=== PATIENT | male | born 1960 | race Caucasian/White ===

== ENCOUNTER 2021-02-05 15:43 | Outpatient (CLI) | payer OTHER, SELFPAY | END 2021-02-05 15:44 | disposition home or self-care (01) | LOC: ANHCOVIDVC 15:44 | PROVIDERS: PCP Family Medicine | DX: Z23 Encounter for immunization (principal) | CPT/HCPCS: 0001A; 91300 ==

== ENCOUNTER 2021-02-26 15:44 | Outpatient (CLI) | payer OTHER, SELFPAY | END 2021-02-26 15:45 | disposition home or self-care (01) | LOC: ANHCOVIDVC 15:44 | PROVIDERS: PCP Family Medicine | DX: Z23 Encounter for immunization (principal) | CPT/HCPCS: 0002A; 91300 ==

== ENCOUNTER → 2021-05-10 01:09 | Outpatient (CLI) | payer OTHER, SELFPAY ==
[2021-05-10 17:56] LABS: SARS-CoV-2 RNA PCR Negative
== END ==
PROVIDERS: PCP Family Medicine; Visit Provider Internal Medicine Gastroenterology
DX: Z01.812 Encounter for preprocedural laboratory examination (principal); Z20.822 Contact with and (suspected) exposure to COVID-19
CPT/HCPCS: C9803; U0003; U0005

== ENCOUNTER 2021-05-14 01:14 | Day surgery (SDC) | payer OTHER, SELFPAY ==
[2021-05-05 10:33] VITALS: BMI 37.8
--- NOTE | 2021-05-13 13:35 | P.PNAN_ITS ---
Anes - Initial Pre Proc Eval Procedure: Operation Date: 05/14/21 08:00 Proposed Procedures p Screening Colonoscopy - Abel Gentile MD Date/Time: 05/13/21 13:35 Surgeon: Abel Gentile MD Pre Op Diagnosis: neoplsam screening, hx of colon polyps Patient Data Age: 60 Gender: M Height: 1.93 m Weight: 141 kg Allergies Allergy/AdvReac Type Severity Reaction Status Date / Time No Known Allergies Allergy Verified 05/14/21 06:49 Home Medications Medication Instructions Recorded Confirmed Type metformin 500 mg tablet,extended 500 mg PO QACDINNER #90 tablet 04/18/20 05/05/21 Rx release 24 hr ascorbic acid (vitamin C) 1,000 mg 1 g PO DAILY 01/31/21 05/05/21 History tablet aspirin 81 mg tablet,delayed 81 mg PO DAILY 01/31/21 05/05/21 History release atorvastatin 10 mg tablet 10 mg PO QHS #90 tablet 01/31/21 05/05/21 Rx hydrochlorothiazide 12.5 mg tablet 12.5 mg PO DAILY #90 tablet 01/31/21 05/05/21 Rx lisinopril 40 mg tablet 40 mg PO DAILY #90 tablet 01/31/21 05/05/21 Rx tamsulosin 0.4 mg capsule 0.4 mg PO DAILY #30 cap 03/24/21 05/14/21 Rx Patient hx anesthesia problems: none Family hx anesthesia problems: none PMFSH Past Medical History Medical History (Updated 05/13/21 @ 13:35 by Ezequiel Ambrocio DO) Colon polyps Essential (primary) hypertension Mixed hyperlipidemia Morbid obesity with BMI of 40.0-44.9, adult Obstructive sleep apnea (adult) (pediatric) Family History Family History Father Family history of lung cancer Other Family history of cardiovascular disease Family history of type 2 diabetes mellitus Social History Social History Alcohol intake: current Substance use: never Substance use type: does not use Living arrangements: with family Spiritual care concerns: No Anes - Eval Final PreProcedure Day of Procedure 05/13/21 13:35 Patient weight: obese Heart: regular rate and rhythm Lungs: clear to auscultation and normal air movement Airway: Mallampati scale class III Neurological: alert and oriented Last oral intake: >/= 8 hours ASA classification: III Emergent: no Anesthetic plan: proceed Anesthesia type and monitoring: general GIVS and standard monitoring Informed Consent: The patient's anesthetic plan and its attendant risks and benefits were discussed with the patient/family/POA. Questions were solicited and answers provided to the satisfaction of the patient/family/POA.
[2021-05-14 06:55] VITALS: BP 133/84; PULSE 100; RESP 20; TEMP 36.4; O2SAT 100
[2021-05-14 07:07] LABS: Glucose Point of Care 119 mg/dl (65-105)
[2021-05-14] MEDS: LACTATED RINGERS 1,000 ML 150 ML IV CONT (07:10)
--- NOTE | 2021-05-14 08:05 | PM.HPGS ---
History of Present Illness History of Present Illness Consent: Risks, benefits, and alternatives have been discussed and questions answered. Patient agrees to proceed with procedure. Chief complaint: neoplsam screening, hx of colon polyps Narrative: Claudio Perez is a 60 year old male for colon cancer screening. He had a polyp removed 3 years ago Review of Systems Review of Systems: All systems reviewed & are unremarkable except as noted in HPI and below PMFSH Past Medical History Medical History Colon polyps Essential (primary) hypertension Mixed hyperlipidemia Morbid obesity with BMI of 40.0-44.9, adult Obstructive sleep apnea (adult) (pediatric) Family History Family History Father Family history of lung cancer Other Family history of cardiovascular disease Family history of type 2 diabetes mellitus Social History Social History Alcohol intake: current Substance use: never Substance use type: does not use Living arrangements: with family Spiritual care concerns: No Meds Home Medications and Allergies Home Medications Medication Instructions Recorded Confirmed Type metformin 500 mg tablet,extended 500 mg PO QACDINNER #90 tablet 04/18/20 05/05/21 Rx release 24 hr ascorbic acid (vitamin C) 1,000 mg 1 g PO DAILY 01/31/21 05/05/21 History tablet aspirin 81 mg tablet,delayed 81 mg PO DAILY 01/31/21 05/05/21 History release atorvastatin 10 mg tablet 10 mg PO QHS #90 tablet 01/31/21 05/05/21 Rx hydrochlorothiazide 12.5 mg tablet 12.5 mg PO DAILY #90 tablet 01/31/21 05/05/21 Rx lisinopril 40 mg tablet 40 mg PO DAILY #90 tablet 01/31/21 05/05/21 Rx tamsulosin 0.4 mg capsule 0.4 mg PO DAILY #30 cap 03/24/21 05/14/21 Rx Allergies Allergy/AdvReac Type Severity Reaction Status Date / Time No Known Allergies Allergy Verified 05/14/21 06:49 Vital Signs Vital Signs - 24 hr 05/14/21 06:55 Temperature 36.4 C Pulse Rate 100 Respiratory Rate 20 Blood Pressure 133/84 Pulse Oximetry 100 Exam Resp: Auscultation: clear to auscultation bilaterally Cardio: Rate: regular rate Rhythm: regular rhythm GI: GI Palp: Yes Soft to palpation and No Tenderness to palpation present (GI) Assessment and Plan Assessment and plan (1) Colon cancer screening: Code(s): Z12.11 - Encounter for screening for malignant neoplasm of colon Status: Acute Assessment and Plan: Colonoscopy with possible biopsy or polypectomy or cautery or injection of substances.
[2021-05-14 08:27] VITALS: BP 103/63; PULSE 89; RESP 22; O2SAT 99
[2021-05-14 08:37] VITALS: BP 101/61; PULSE 82; RESP 23; O2SAT 97
[2021-05-14 08:47] VITALS: BP 118/76; PULSE 80; RESP 20; O2SAT 98
== END 2021-05-14 08:54 | disposition home or self-care (01) ==
PROVIDERS: PCP Family Medicine; Visit Provider Internal Medicine Gastroenterology
PROC: 0DJD8ZZ Inspection of Lower Intestinal Tract, Via Natural or Artificial Opening Endoscopic (ICD-10-PCS; CPT 45378; principal; 2021-05-14 08:00)
DX: Z12.11 Encounter for screening for malignant neoplasm of colon (principal); D12.2 Benign neoplasm of ascending colon; D12.5 Benign neoplasm of sigmoid colon; K57.30 Diverticulosis of large intestine without perforation or abscess without bleeding; I10 Essential (primary) hypertension; E78.2 Mixed hyperlipidemia; G47.33 Obstructive sleep apnea (adult) (pediatric); Z79.84 Long term (current) use of oral hypoglycemic drugs; Z79.82 Long term (current) use of aspirin; E66.9 Obesity, unspecified; Z68.39 Body mass index [BMI] 39.0-39.9, adult
CPT/HCPCS: 45385; 45380; 82948; 88305; C9803; J2704; J7120; U0003; U0005

== ENCOUNTER 2024-05-15 19:16 | Emergency (ER) | payer OTHER, SELFPAY ==
[2024-05-15 19:24] VITALS: BP 133/92; PULSE 137; RESP 20; TEMP 36.5; O2SAT 100
--- NOTE | 2024-05-15 19:36 | ED.SKABFB ---
HPI - Skin/Abscess/Foreign Bdy General Chief complaint: Skin/Abscess/Foreign Body Stated complaint: Rash Left Leg Time Seen by Provider: 05/15/24 19:24 Source: patient and RN notes reviewed Mode of arrival: ambulatory Limitations: no limitations History of Present Illness HPI narrative: Patient presents today complaining of sudden onset rash to the bilateral calves the just started 1 hour prior to arrival as he was mowing his lawn. Denies any current itching or pain. He has tried no [id number] treatment prior to arrival. Related Data Home Medications Medication Instructions Recorded Confirmed ascorbic acid (vitamin C) 1,000 mg 1 g PO DAILY 01/31/21 05/15/24 tablet aspirin 81 mg tablet,delayed 81 mg PO DAILY 01/31/21 05/15/24 release (Rukhsana Low Dose Aspirin) Allergies Allergy/AdvReac Type Severity Reaction Status Date / Time No Known Allergies Allergy Verified 02/24/24 15:28 Review of Systems Review of Systems: CONSTITUTIONAL: Denies body aches, fever, chills, or sweats. EYES: Denies visual changes, redness, or discharge. ENT: Denies rhinorrhea, congestion, sore throat, or otalgia. CARDIOVASCULAR: Denies chest pain, palpitations, or edema. RESPIRATORY: Denies cough or dyspnea. GASTROINTESTINAL: Denies abdominal pain, nausea, vomiting, or diarrhea. GENITOURINARY: Denies dysuria or hematuria. SKIN: + rash to bilateral posterior calves MUSCULOSKELETAL: Denies back pain, joint pain, or myalgia. NEUROLOGIC: Denies headache, numbness, tingling, or weakness. PSYCH: Denies depression or anxiety. [facility] Past Medical History Medical History Colon polyps Essential (primary) hypertension Mixed hyperlipidemia Morbid obesity with BMI of 40.0-44.9, adult Obstructive sleep apnea (adult) (pediatric) Tubular adenoma of colon Family History Family History Father Family history of lung cancer Other Family history of cardiovascular disease Family history of type 2 diabetes mellitus Social History Social History Smoking status: Never smoker Alcohol intake: current Substance use: never Substance use type: does not use Lack of Transportation: No Lack of Food: Never True Current Housing: I Have Housing Difficulty Paying Gas/Electric Bills: No Difficulty Paying for Meds: No Currently Unemployed: No Education: Master's Degree or Higher Difficulty w/ Childcare or Family Care: No Living arrangements: with family Spiritual care concerns: No Comments At time of signature, I have reviewed and agree with nursing past medical, surgical, social and family history unless otherwise noted. Please see nursing chart for further information. There is no relevant family history pertinent to the presenting complaint Exam Narrative: GENERAL: Well-appearing, well-nourished, and in no acute distress. HEAD: Normocephalic, atraumatic. EYES: EOMI. No redness or drainage. Conjunctivae normal. ENT: Mucous membranes pink and moist. NECK: Normal AROM. CHEST: No respiratory distress. EXTREMITIES: Normal range of motion. No edema. SKIN: Warm, dry. Capillary refill normal. Normal skin turgor.10 x 13cm area of irregularly-shaped erythematous macule to left posterior calf. 5 x 4 cm irregularly-shaped erythematous macule to the right posterior calf. No edema, ecchymosis. NEURO: No focal deficits. Alert and oriented x3. Gait steady. PSYCH: Normal affect. No signs of depression or anxiety. Course Course Level of Care: Express Care Visit Vital Signs Vital signs: Vital Signs Temperature 97.7 F 05/15/24 19:24 Pulse Rate 137 H 05/15/24 19:24 Respiratory Rate 20 05/15/24 19:24 Blood Pressure 133/92 H 05/15/24 19:24 Pulse Oximetry 100 05/15/24 19:24 Oxygen Delivery Room Air 05/15/24 19:24
[2024-05-15 19:45] VITALS: PULSE 136
== END 2024-05-15 19:49 | disposition home or self-care (01) ==
PROVIDERS: Emergency Provider Nurse Practitioner; PCP Family Medicine
DX: L25.9 Unspecified contact dermatitis, unspecified cause (principal); I10 Essential (primary) hypertension; E78.2 Mixed hyperlipidemia; E66.01 Morbid (severe) obesity due to excess calories; Z68.37 Body mass index [BMI] 37.0-37.9, adult; Z79.82 Long term (current) use of aspirin
CPT/HCPCS: 99213; G0463

== ENCOUNTER 2024-10-31 01:53 | Day surgery (SDC) | payer OTHER, SELFPAY ==
[2024-10-11 10:28] VITALS: BMI 37.7
[2024-10-31 09:40] VITALS: BP 150/92; PULSE 102; RESP 18; TEMP 36.4; O2SAT 100
--- NOTE | 2024-10-31 09:55 | P.PNAN_ITS ---
Anes - Initial Pre Proc Eval Procedure: Operation Date: 10/31/24 11:00 Proposed Procedures p Colonoscopy - Kemar Colbert MD Date/Time: 10/31/24 09:55 Surgeon: Kemar Colbert MD Pre Op Diagnosis: Personal hx. colon polyps Patient Data Age: 64 Gender: M Height: 1.91 m Weight: 140.8 kg Last Vital Signs Temp 36.4 C 10/31/24 09:40 Pulse 102 H 10/31/24 09:40 Resp 18 10/31/24 09:40 BP 150/92 H 10/31/24 09:40 Pulse Ox 100 10/31/24 09:40 O2 Del Method Room Air 10/31/24 09:40 Allergies Allergy/AdvReac Type Severity Reaction Status Date / Time No Known Allergies Allergy Verified 10/31/24 09:38 Home Medications Medication Instructions Recorded Confirmed Type ascorbic acid (vitamin C) 1,000 mg 2 g PO DAILY 01/31/21 10/31/24 History tablet aspirin 81 mg tablet,delayed 81 mg PO DAILY 01/31/21 10/31/24 History release (Rukhsana Low Dose Aspirin) atorvastatin 10 mg tablet 10 mg PO QHS #90 tabs 07/14/24 10/31/24 Rx hydrochlorothiazide 12.5 mg tablet 12.5 mg PO DAILY #90 tabs 09/13/24 10/31/24 Rx lisinopril 40 mg tablet 40 mg PO DAILY #90 tabs 09/13/24 10/31/24 Rx metformin 500 mg tablet,extended 1,000 mg PO DAILY 10/11/24 10/31/24 History release 24 hr semaglutide 1 mg/dose (4 mg/3 mL) 1 mg subcut WEEKLY 10/11/24 10/31/24 History subcutaneous pen injector (Ozempic) Patient hx anesthesia problems: none Family hx anesthesia problems: none Results Review: All pre-operative results and documents have been reviewed as part of the pre- operative evaluation. [facility] Past Medical History Medical History (Updated 06/30/24 @ 15:23 by Duc Vega MD) Colon polyps Essential (primary) hypertension Mixed hyperlipidemia Morbid obesity with BMI of 40.0-44.9, adult Obstructive sleep apnea (adult) (pediatric) Tubular adenoma of colon Family History Family History Father Family history of lung cancer Other Family history of cardiovascular disease Family history of type 2 diabetes mellitus Social History Social History Smoking status: Never smoker Alcohol intake: never Substance use: never Substance use type: does not use Lack of Transportation: No Lack of Food: Never True Current Housing: I Have Housing Difficulty Paying Gas/Electric Bills: No Difficulty Paying for Meds: No Currently Unemployed: No Education: Master's Degree or Higher Difficulty w/ Childcare or Family Care: No Living arrangements: with family Spiritual care concerns: No Anes - Eval Final PreProcedure Day of Procedure 10/31/24 09:55 Patient weight: obese Heart: regular rate and rhythm Lungs: clear to auscultation Airway: Mallampati scale class II Neurological: alert and oriented Last oral intake: >/= 8 hours ASA classification: III Emergent: no Anesthetic plan: proceed Anesthesia type and monitoring: general GIVS and standard monitoring Results Review: All pre-operative results and documents have been reviewed as part of the pre- operative evaluation. Informed Consent: The patient's anesthetic plan and its attendant risks and benefits were discussed with the patient/family/POA. Questions were solicited and answers provided to the satisfaction of the patient/family/POA.
[2024-10-31] MEDS: LACTATED RINGERS 1,000 ML 150 ML IV CONT (09:58)
[2024-10-31 10:04] LABS: Glucose Point of Care 100 mg/dl (65-105)
--- NOTE | 2024-10-31 10:26 | PM.HPGS ---
History of Present Illness History of Present Illness Consent: Risks, benefits, and alternatives have been discussed and questions answered. Patient agrees to proceed with procedure. Chief complaint: Personal hx. colon polyps Narrative: Claudio Perez is a 64 year old male with colon polyp 3 years ago Review of Systems Review of Systems: All systems reviewed & are unremarkable except as noted in HPI and below PMFSH Past Medical History Medical History (Updated 06/30/24 @ 15:23 by Duc Vega MD) Colon polyps Essential (primary) hypertension Mixed hyperlipidemia Morbid obesity with BMI of 40.0-44.9, adult Obstructive sleep apnea (adult) (pediatric) Tubular adenoma of colon Family History Family History Father Family history of lung cancer Other Family history of cardiovascular disease Family history of type 2 diabetes mellitus Social History Social History Smoking status: Never smoker Alcohol intake: never Substance use: never Substance use type: does not use Lack of Transportation: No Lack of Food: Never True Current Housing: I Have Housing Difficulty Paying Gas/Electric Bills: No Difficulty Paying for Meds: No Currently Unemployed: No Education: Master's Degree or Higher Difficulty w/ Childcare or Family Care: No Living arrangements: with family Spiritual care concerns: No Meds Home Medications and Allergies Home Medications Medication Instructions Recorded Confirmed Type ascorbic acid (vitamin C) 1,000 mg 2 g PO DAILY 01/31/21 10/31/24 History tablet aspirin 81 mg tablet,delayed 81 mg PO DAILY 01/31/21 10/31/24 History release (Rukhsana Low Dose Aspirin) atorvastatin 10 mg tablet 10 mg PO QHS #90 tabs 07/14/24 10/31/24 Rx hydrochlorothiazide 12.5 mg tablet 12.5 mg PO DAILY #90 tabs 09/13/24 10/31/24 Rx lisinopril 40 mg tablet 40 mg PO DAILY #90 tabs 09/13/24 10/31/24 Rx metformin 500 mg tablet,extended 1,000 mg PO DAILY 10/11/24 10/31/24 History release 24 hr semaglutide 1 mg/dose (4 mg/3 mL) 1 mg subcut WEEKLY 10/11/24 10/31/24 History subcutaneous pen injector (Ozempic) Allergies Allergy/AdvReac Type Severity Reaction Status Date / Time No Known Allergies Allergy Verified 10/31/24 09:38 Vital Signs Vital Signs - 24 hr 10/31/24 09:40 Temperature 97.6 F Pulse Rate 102 H Respiratory Rate 18 Blood Pressure 150/92 H Pulse Oximetry 100 Oxygen Delivery Room Air Exam Const: General: comfortable and no acute distress HENMT: Face/Nose/Sinus: Normal nares present Eyes: General: appearance normal, both eyes and all related structures Neck: Neck: no JVD Resp: Auscultation: clear to auscultation bilaterally Cardio: Rate: regular rate Rhythm: regular rhythm GI: Inspection: non-distended GI Palp: Yes Soft to palpation Skin: General skin exam: normal color Neuro: General: gait normal Speech: normal speech Extrem: General: normal to inspection Psych: Mental Status: mental status grossly normal Assessment and Plan Assessment and plan (1) Colon polyps: Code(s): K63.5 - Polyp of colon Status: Acute Assessment and Plan: colonoscopy
[2024-10-31 10:43] VITALS: BP 114/79; PULSE 90; RESP 22; O2SAT 97
[2024-10-31 10:53] VITALS: BP 131/89; PULSE 90; RESP 18; O2SAT 98
[2024-10-31 11:03] VITALS: BP 136/89; PULSE 84; RESP 15; O2SAT 99
== END 2024-10-31 11:10 | disposition home or self-care (01) ==
PROVIDERS: PCP Family Medicine; Visit Provider Internal Medicine Gastroenterology
PROC: 0DJD8ZZ Inspection of Lower Intestinal Tract, Via Natural or Artificial Opening Endoscopic (ICD-10-PCS; CPT 45378; principal; 2024-10-31 11:00)
DX: Z12.11 Encounter for screening for malignant neoplasm of colon (principal); D12.3 Benign neoplasm of transverse colon; K57.30 Diverticulosis of large intestine without perforation or abscess without bleeding; I10 Essential (primary) hypertension; E78.2 Mixed hyperlipidemia; G47.33 Obstructive sleep apnea (adult) (pediatric); E66.9 Obesity, unspecified; Z68.38 Body mass index [BMI] 38.0-38.9, adult; Z79.82 Long term (current) use of aspirin; Z79.84 Long term (current) use of oral hypoglycemic drugs; Z79.85 Long-term (current) use of injectable non-insulin antidiabetic drugs; Z80.1 Family history of malignant neoplasm of trachea, bronchus and lung; Z82.49 Family history of ischemic heart disease and other diseases of the circulatory system
CPT/HCPCS: 45385; 82948; 88305; J2704; J7120

== ENCOUNTER 2025-01-12 15:47 | Emergency (ER) | payer OTHER, SELFPAY ==
--- NOTE | ~2025-01-12 | CT_ITS ---
CLINICAL INDICATION: Right flank pain COMPARISON: 10/17/2018 for acute or. TECHNIQUE: Multiple contiguous axial images of the abdomen and pelvis were performed without the admi nistration of intravenous contrast The dose-length product (DLP) was 1329.40 mGy-cm. Automated exposure control and iterative reconstruction technique were employed. FINDINGS/OBSERVATIONS: Visualized lower thorax: Calcified granulomas detected bilaterally. 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 The remainder of the bilateral lung bases are clear. The heart is enlarged, without pericardial effusion. Small hiatal hernia is present. Liver: The liver demonstrates homogeneous attenuation and is not enlarged measuring 14 cm in longitudinal di mension. Gallbladder and biliary system: The gallbladder is only minimally distended, and otherwise unremarkable. Pancreas: Limited evaluation of the pancreas secondary to the lack of intravenous contrast. Spleen: The spleen demonstrates homogeneous attenuation and is not enlarged measuring 9 cm in longitudinal di mension. Kidneys: Two nonobstructing renal calculi within the right kidney, stable from 2018. These measure 7 and 5 mm, respectively. A single 3 mm calcification within the lower pole of the left kidney, also nonobstructing. No hydronephrosis detected bilaterally. Adrenal glands: Unremarkable. Gastrointestinal tract: Colonic diverticulosis without surrounding inflammatory change. Appendix: The appendix is not definitively visualized. However, no pericecal inflammatory change is identified suggest the presence of acute appendicitis. Vasculature: Calcified atherosclerotic disease. Lymph nodes: Limited evaluation without intravenous contrast Pelvic structures: The bladder is distended, and otherwise unremarkable. The prostate gland is not enlarged. Body wall and musculoskeletal: Small fat-containing umbilical hernia. No significant degenerative disease within the lower thoracic or lumbosacral spine. IMPRESSION: No obstructive uropathy. Stable nonobstructing renal calculi within the bilateral kidneys. No acute pathology, as detailed above. Reviewed, dictated and finalized at location A. [employer]
--- OUTSIDE RECORDS SUMMARY | 2025-01-12 15:49 | XMS_ITS | Encounter Summary ---
Author Organization [facility] Address [address] [place] [address] Care Team Providers Care Emergency Room Doctor Name Role Phone Unavailable Primary Care Provider Unavailabl e Encounter Details Date Type Department Care Team (Late st Contact Info) Description 01/30/2008 Outpatient Historical [facility] Harry Hahn MD [address] [place] [address] Benign Neoplasm of Colon; Internal Hemorrhoids with Other Complication; Unspecified Essential Hypertension; Obstructive Sleep Apnea (Adult) (Pediatric) Social History Tobacco Use Types Packs/Day Years Used Date Smoking Tobacco: Never Assessed Sex and Gender Information Value Date Recorded Sex Assigned at Not on file 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
--- OUTSIDE RECORDS SUMMARY | 2025-01-12 15:49 | XMS_ITS | Clinical Summary ---
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
[2025-01-12 16:06] VITALS: BP 160/103; PULSE 100; RESP 16; TEMP 36.6; O2SAT 97
--- NOTE | 2025-01-12 16:25 | ED_ITS ---
HPI - General Adult General Chief complaint: Unspecified Stated complaint: right flank pain Focused HPI: 64-year-old male presents emergency department for right flank pain for 1 month. States pain is worse with certain movements of his back. States at times it radiates down the lateral anterior aspect of his leg into his toes. He is also endorsing some dysuria no history of kidney stones. Denies hematuria, abdominal pain, fever, nausea or vomiting. Denies numbness in his groin, bowel or bladder incontinence, urinary retention. GENERAL: Well-appearing, well-nourished, and in no acute distress. HEAD: Normocephalic, atraumatic. CHEST: Clear to auscultation. ?No respiratory distress. ABD/BACK: Tenderness to the right CVA, no midline thoracolumbar spinous tenderness. No saddle anesthesia. BLE strength 5/5 HEART: Regular rate and rhythm.? NEURO: ?Alert and oriented x3. Patient screened in triage and initial orders placed.? ?Additional care and disposition to be based upon?diagnostic testing and treatment. Related Data Home Medications ?Medication ?Instructions ?Recorded ?Confirmed ?Last Taken ?Type ascorbic acid (vitamin C) 1,000 mg 2 g PO DAILY 01/31/21 10/31/24 10/30/24 History tablet aspirin 81 mg tablet,delayed 81 mg PO DAILY 01/31/21 10/31/24 10/30/24 History release (Rukhsana Low Dose Aspirin) semaglutide 1 mg/dose (4 mg/3 mL) 1 mg subcut WEEKLY 10/11/24 10/31/24 10/15/24 History subcutaneous pen injector (Ozempic) Allergies Allergy/AdvReac Type Severity Reaction Status Date / Time No Known Allergies Allergy Verified 10/31/24 09:38 [facility] Past Medical History Medical History (Updated 11/01/24 @ 10:07 by Duc Vega MD) Tubular adenoma of colon 2023 Internal hemorrhoid, bleeding Prostatitis, acute Morbid obesity with BMI of 40.0-44.9, adult Essential (primary) hypertension Mixed hyperlipidemia Obstructive sleep apnea (adult) (pediatric) Urinary calculus, unspecified Family History Family History Father Family history of lung cancer Other Family history of cardiovascular disease Family history of type 2 diabetes mellitus Social History Social History Smoking status: Never smoker Alcohol intake: never Substance use: never Substance use type: does not use Lack of Transportation: No Lack of Food: Never True Current Housing: I Have Housing Difficulty Paying Gas/Electric Bills: No Difficulty Paying for Meds: No Currently Unemployed: No Education: Master's Degree or Higher Difficulty w/ Childcare or Family Care: No Living arrangements: with family Spiritual care concerns: No Course Vital Signs Vital signs: Vital Signs Temperature 97.8 F 01/12/25 16:06 Pulse Rate 100 01/12/25 16:06 Respiratory Rate 16 01/12/25 16:06 Blood Pressure 160/103 H 01/12/25 16:06 Pulse Oximetry 97 01/12/25 16:06 Temperature 97.8 F 01/12/25 16:06 Pulse Rate 100 01/12/25 16:06 Respiratory Rate 16 01/12/25 16:06 Blood Pressure 160/103 H 01/12/25 16:06 Pulse Oximetry 97 01/12/25 16:06 Medical Decision Making Vital Signs Vital Signs: Vital Signs Temperature 97.8 F 01/12/25 16:06 Pulse Rate 100 01/12/25 16:06 Respiratory Rate 16 01/12/25 16:06 Blood Pressure 160/103 H 01/12/25 16:06 Pulse Oximetry 97 01/12/25 16:06 Temperature 97.8 F 01/12/25 16:06 Pulse Rate 100 01/12/25 16:06 Respiratory Rate 16 01/12/25 16:06 Blood Pressure 160/103 H 01/12/25 16:06 Pulse Oximetry 97 01/12/25 16:06 Discharge Plan Discharge Patient Language: [place] Prescriptions: No Action ascorbic acid (vitamin C) 1,000 mg tablet 2 g PO DAILY aspirin [Rukhsana Low Dose Aspirin] 81 mg tablet,delayed release (DR/EC) 81 mg PO DAILY Ozempic 1 mg/dose (4 mg/3 mL) pen injector 1 mg subcut WEEKLY Rx Instructions: INJECT SUBCUTANEOUSLY 1 MG EVERY WEEK hydrochlorothiazide 12.5 mg tablet 12.5 mg PO DAILY Qty: 90 1RF lisinopril 40 mg tablet 40 mg PO DAILY Qty: 90 1RF atorvastatin 10 mg tablet 10 mg PO QHS Qty: 90 1RF metformin 500 mg tablet extended release 24 hr 1,000 mg PO DAILY Qty: 180 1RF Follow-up/Referrals: Duc Vega MD [Primary Care Provider] -
--- OUTSIDE RECORDS SUMMARY | 2025-01-12 17:54 | XMS_ITS | Clinical Summary ---
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
--- OUTSIDE RECORDS SUMMARY | 2025-01-12 17:54 | XMS_ITS | Encounter Summary ---
Author Organization [facility] Address [address] [place] [address] Care Team Providers Care Automatic Lathe Operator Name Role Phone Unavailable Primary Care Provider Unavailabl e Encounter Details Date Type Department Care Team (Late st Contact Info) Description 01/30/2008 Outpatient Historical [facility] Harry Hahn MD [address] [place] [address] Benign Neoplasm of Colon; Internal Hemorrhoids with Other Complication; Unspecified Essential Hypertension; Obstructive Sleep Apnea (Adult) (Pediatric) Social History Tobacco Use Types Packs/Day Years Used Date Smoking Tobacco: Never Assessed Sex and Gender Information Value Date Recorded Sex Assigned at Not on file 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
[2025-01-12 18:03] VITALS: BP 161/105; PULSE 99; RESP 16; O2SAT 100
[2025-01-12 18:14] LABS: Basophils Percent Auto 0.2 % (0.2-1.2); Eosinophils Absolute Auto 0.1 K/mm3 (0-0.3); Hematocrit 40.1 % (42.0-52.0); Hemoglobin 13.3 g/dL (14.0-18.0); Immature Granulocyte Absolute 0.03 K/mm3 (0.00-0.031); Immature Granulocyte Percent A 0.5 % (0-0.5); Lymphocytes Absolute Auto 1.82 K/mm3 (0.9-3.2); Lymphocytes Percent Auto 27.5 % (18.3-44.2); Mean Corpuscular HGB Conc 33.2 g/dl (32-36); Mean Corpuscular Hemoglobin 28.4 pg (26-34); Mean Corpuscular Volume 85.7 fl (80-100); Mean Platelet Volume 9.5 fl (7.4-10.4); Monocytes Absolute Auto 0.5 K/mm3 (0.1-0.6); Monocytes Percent Auto 7.3 % (2.6-8.5); Neutrophils Absolute Auto 4.2 K/mm3 (1.3-6.7); Neutrophils Percent Auto 62.5 % (45.5-73.1); Platelet Count Result 176 k/mm3 (150-375); Red Blood Count 4.68 M/mm3 (4.6-6.20); Red Cell Distribution Width 13.6 % (11.5-14.5); White Blood Count 6.6 K/mm3 (4.5-10.0)
[2025-01-12 18:29] LABS: Alanine Aminotransferase 31 U/L (6-50); Albumin Level 4.2 g/dL (3.5-5.1); Alkaline Phosphatase 83 U/L (38-126); Anion Gap 8 mmol/L (4-12); Aspartate Amino Transferase 23 U/L (17-59); Bilirubin,Total 0.7 mg/dL (0.2-1.3); Blood Urea Nitrogen 18 mg/dL (9-20); Calcium 9.1 mg/dL (8.4-10.2); Carbon Dioxide 25 mmol/L (22-30); Chloride 106 mmol/L (98-107); Estimated CRCL calculation 103 ml/min; Estimated Glomerular Filt Rate > 60; Glucose 98 mg/dL (65-110); Potassium 4.6 mmol/L (3.4-5.0); Sodium 139 mmol/L (137-145)
[2025-01-12 18:42] LABS: Add Urine Microscopic? YES; Appearance Urine Clear (Clear); Bacteria Urine 4+ /hpf; Bilirubin Urine Negative (Negative); Blood Urine Negative (Negative); Color Urine Yellow (Yellow); Glucose Urine UA Negative (Negative); Ketones Urine Negative (Negative); Leukocyte Esterase Ur 1+ LEU/UL (Negative); Nitrate Urine Positive (Negative); Non Pathogenic Casts 0-2; Protein Urine Negative (Negative); RBC Urine 0-2 /hpf (0-2); Specific Grav Ur 1.022 (1.001-1.035); Squamous Epithelial Cell Urine None Seen /hpf (Few); Urobilinogen Urine 0.2 mg/dL (<2.0); WBC Urine 21-50 /hpf (0-3)
[2025-01-12] MEDS: CIPROFLOXACIN 500 MG TAB PO (19:51)
== END 2025-01-12 19:57 | disposition left against medical advice (07) ==
PROVIDERS: Physician Assistant; Emergency Provider Emergency Medicine; PCP Family Medicine
DX: M54.9 Dorsalgia, unspecified (principal); I10 Essential (primary) hypertension; E66.01 Morbid (severe) obesity due to excess calories; Z68.38 Body mass index [BMI] 38.0-38.9, adult; E78.2 Mixed hyperlipidemia; G47.33 Obstructive sleep apnea (adult) (pediatric); Z87.442 Personal history of urinary calculi; Z79.82 Long term (current) use of aspirin; Z79.85 Long-term (current) use of injectable non-insulin antidiabetic drugs; Z79.84 Long term (current) use of oral hypoglycemic drugs; Z79.899 Other long term (current) drug therapy
CPT/HCPCS: 36415; 74176; 80053; 81001; 85025; 87077; 87086; 87186; 99284; A9270